=== PATIENT | female | born 1990 | race Hispanic/Latino ===

== ENCOUNTER 2020-01-27 08:00 | Inpatient (IN) | payer MEDICAID ==
[~2020-01-27] VITALS: Ht 152.4 cm; Wt 106.6 kg
[~2020-01-27 08:00] MED LIST: ACET1TAB12 PO
[2020-01-31] MEDS ORDERED: LACTATED RINGERS 1000ML 1,000 ML IV SCH ×2 (05:45→06:00)
[2020-01-31] MEDS ORDERED: CEFAZOLIN SODIUM 1 GM VIAL IVP PRN (06:00)
[2020-01-31 06:59] LABS: HEMATOCRIT 36.7 % (36-48); MEAN CORPUSCULAR HEMOGLOBIN 23.9 pg (27.0-33.0); MEAN CORPUSCULAR HGB CONC 31.6 g/dL (32.0-36.0); MEAN CORPUSCULAR VOLUME 75.5 fL (79-99); PLATELET COUNT (AUTO) 328 K/uL (130-400); RED BLOOD CELL COUNT(AUTO) 4.86 MIL/uL (4.00-5.50); RED CELL DISTRIBUTION WIDTH 15.2 % (11.0-15.5); WHITE BLOOD COUNT (AUTO) 10.7 K/uL (4.8-10.8)
[2020-01-31 07:22] LABS: APPEARANCE,URINE Cloudy (CLEAR); BILIRUBIN,URINE Negative (NEGATIVE); COLOR,URINE Yellow (YELLOW); GLUCOSE, URINE (UA) Negative (NEGATIVE); KETONES,URINE >=80 mg/dL (NEGATIVE); LEUKOCYTE ESTERASE ,URINE Small (NEGATIVE); NITRATE,URINE Negative (NEGATIVE); OCCULT BLOOD,URINE Negative (NEGATIVE); PH,URINE 5.5 (5.0-8.0); PROTEIN,URINE Negative (NEGATIVE)
[2020-01-31 07:48] LABS: BACTERIA,URINE Moderate /HPF (None Seen); RBC,URINE 0-1 /HPF (0-1); SQUAMOUS EPITHELIAL CELL,UR 0-2 /HPF (0-2); WBC,URINE 0-1 /HPF (0-1)
[2020-01-31] MEDS ORDERED: METOCLOPRAMIDE 10 MG/2 ML VIAL ONE (09:16)
[2020-01-31] MEDS ORDERED: ONDANSETRON HCL 4 MG/2 ML VIAL ONE ×2 (09:16→12:59)
[2020-01-31] MEDS ORDERED: DURAMORPH PF1 MG/ML 10ML AMP IV ONE (09:17)
[2020-01-31 10:12] LABS: RAPID PLASMA REAGIN NONREACTIVE (NONREACTIVE)
[2020-01-31] MEDS ORDERED: CALDOLOR 800MG+NS 250ML 250 ML IV ONE ×2 (10:13→10:22)
[2020-01-31] MEDS ORDERED: OXYTOCIN-LR 20 UNITS/1000 ML 1,000 ML IV ONE (10:13)
[2020-01-31] MEDS: CEFAZOLIN SODIUM 1 GM VIAL IVP SCH ×2 (10:15→18:39)
[2020-01-31] MEDS ORDERED: BISACODYL 10 MG SUPP.RECT RC PRN (10:15)
[2020-01-31] MEDS ORDERED: SODIUM CHLORIDE 0.9% 10 ML VIAL IVP PRN (10:15)
[2020-01-31] MEDS ORDERED: DIPH,PERTUSS(ACELL),TET VAC/PF 0.5 ML VIAL IM SCH (10:15)
[2020-01-31] MEDS ORDERED: CALDOLOR 800MG+NS 250ML 250 ML IV PRN (10:15)
[2020-01-31] MEDS ORDERED: ACETAMINOPHEN-CODEINE 300/30MG TAB PO PRN (10:15)
[2020-01-31] MEDS ORDERED: MEASLES/MUMPS/RUBELLA VACCINE, LIVE 0.5 ML/VIAL SQ SCH (10:15)
[2020-01-31] MEDS ORDERED: LANOLIN 30GM OINTMENT TP PRN (10:15)
[2020-01-31] MEDS ORDERED: ACETAMINOPHEN EXTRA STRENGTH 500 MG TABLET PO PRN (10:15)
[2020-01-31] MEDS ORDERED: MEPERIDINE-PF 75 MG/ML SYG IM PRN (10:15)
[2020-01-31] MEDS ORDERED: OXYTOCIN-LR 20 UNITS/1000 ML 1,000 ML IV PRN (10:15)
[2020-01-31] MEDS ORDERED: DEXTROSE 5 %-0.45 % NACL 1,000 ML IV PRN (10:15)
[2020-01-31] MEDS ORDERED: HYDROCODONE/ACETAMINOPHEN 5/325 MG TAB PO PRN (10:15)
[2020-01-31] MEDS ORDERED: IBUPROFEN 600 MG TABLET PO PRN (10:15)
[2020-01-31] MEDS ORDERED: DIPH,PERTUSS(ACELL),TET VAC/PF 0.5 ML VIAL IM PRN (10:15)
[2020-01-31] MEDS ORDERED: PROMETHAZINE HCL 25 MG/ML 1ML AMPULE IM PRN (10:15)
[2020-01-31] MEDS ORDERED: SIMETHICONE 80 MG TAB.CHEW PO PRN (10:15)
[2020-01-31] MEDS ORDERED: MEASLES/MUMPS/RUBELLA VACCINE, LIVE 0.5 ML/VIAL SQ PRN (10:15)
[2020-01-31 11:18] VITALS: BP 99/61
[2020-01-31 16:33] VITALS: BP 128/83
[2020-01-31] MEDS: CALDOLOR 800MG+NS 250ML 250 ML IV SCH (18:39)
[2020-01-31 20:13] VITALS: BP 102/58
[2020-01-31] MEDS: DOCUSATE SODIUM 100 MG CAP PO SCH (20:38)
[2020-02-01 00:15] VITALS: BP 112/59
[2020-02-01] MEDS: CEFAZOLIN SODIUM 1 GM VIAL IVP SCH (02:55)
[2020-02-01] MEDS: CALDOLOR 800MG+NS 250ML 250 ML IV SCH (02:59)
[2020-02-01 03:36] VITALS: BP 109/66
--- NOTE | 2020-02-01 05:50 | NUR ---
JOVEL CATHETER DISCONTINUED, PT. INST TO CALL FOR ASSIST BEFORE GETTING OUT OF BED, VERBALIZED UNDERSTANDING. Addendum: 02/01/20 at 0609 by SALVADOR AGUIAR RN RN Amended: Links added.
--- NOTE | 2020-02-01 06:00 | NUR ---
PT. UP TO BR WITH ASSIST, WELL TOLERATED.
--- NOTE | 2020-02-01 06:15 | NUR ---
PT. HAD A SOFT BM, ASSIST WITH WIPING AND BACK TO SIT ON THE CHAIR, WELL TOLERATED.
[2020-02-01 07:04] LABS: MEAN CORPUSCULAR HEMOGLOBIN 24.1 pg (27.0-33.0); MEAN CORPUSCULAR HGB CONC 31.5 g/dL (32.0-36.0); MEAN CORPUSCULAR VOLUME 76.4 fL (79-99); RED BLOOD CELL COUNT(AUTO) 4.32 MIL/uL (4.00-5.50); WHITE BLOOD COUNT (AUTO) 10.3 K/uL (4.8-10.8)
[2020-02-01 07:15] LABS: HEPATITIS Bs ANTIGEN SCREEN P Negative (Negative)
[2020-02-01 07:32] VITALS: BP 89/56
[2020-02-01] MEDS: DOCUSATE SODIUM 100 MG CAP PO SCH (08:41)
--- NOTE | 2020-02-01 09:45 | NUR ---
CONSULT PT SEEN PER REQUEST. BABY CURRENTLY LATCHED TO RIGHT BREAST VIA CRADLE POSITION, ADEQUATE LATCH NOTED, PT SUCKLING COMFORTABLY. QUESTIONS INVITED AND ANSWERED. PT SPECIFICALLY CONCERNED REGARDING BABY'S SUCKLE PATTERN. REASURRANCE GIVEN TO MOTHER. MOTHER APPEARS HAPPY TO BE . MOTHER REPORTS BABY HAS HAD SEVERAL URINE/STOOL OUTPUTS. ENCOURAGED MOTHER TO NOTIFY LC FOR ANY FURTHER QUESTIONS/CONCERNS NEEDED.
[2020-02-01 10:56] VITALS: BP 116/66
--- NOTE | 2020-02-01 13:35 | NUR ---
DISCHARGE PT LEFT UNIT VIA WHEELCHAIR, WITH BABY IN ARMS, ACCOMPANIED BY SIGNIFICANT OTHER. DENIED PAIN AND HAD NO COMPLAINTS. BABY STRAPPED IN CAR SEAT. PT AND BABY TRANSPORTED BY PERSONAL VEHICLE.
== END 2020-02-01 13:35 | disposition home or self-care (01) | DRG 540 ==
LOC: LDH 01-31 05:45 → WSH 01-31 11:15
PROVIDERS: ADMIT Obstetrics & Gynecology; ATTEND Obstetrics & Gynecology
PROC: 3E0234Z Introduction of Serum, Toxoid and Vaccine into Muscle, Percutaneous Approach (ICD-10-PCS; 2020-01-31)
PROC: 3E0134Z Introduction of Serum, Toxoid and Vaccine into Subcutaneous Tissue, Percutaneous Approach (ICD-10-PCS; 2020-01-31)
PROC: 10D00Z1 Extraction of Products of Conception, Low, Open Approach (ICD-10-PCS; principal; 2020-01-31 09:30)
DX: O34.211 Maternal care for low transverse scar from previous cesarean delivery (principal); O69.81X0 Labor and delivery complicated by cord around neck, without compression, not applicable or unspecified; Z20.828 Contact with and (suspected) exposure to other viral communicable diseases; O99.214 Obesity complicating childbirth; E66.01 Morbid (severe) obesity due to excess calories; Z37.0 Single live birth; Z23 Encounter for immunization; Z3A.39 39 weeks gestation of pregnancy
CPT/HCPCS: 36415; 59510; 81001; 85027; 86592; 86701; 86850; 86900; 86901; 87088; 87340; 87390; A4344; G0378; J0690; J1741; J2274; J2405; J2590; J2765; J7120; U0003

== ENCOUNTER 2022-03-05 14:53 | Emergency (ER) | payer MEDICAID ==
[~2022-03-05] VITALS: Ht 160 cm; Wt 106.1 kg
[2022-03-05 14:55] VITALS: BP 123/73
[2022-03-05] MEDS ORDERED: OSELTAMIVIR PHOSPHATE 75 MG CAP PO SCH (16:00)
[2022-03-05] MEDS ORDERED: ACETAMINOPHEN 500 MG TABLET PO ONE (16:00)
[2022-03-05] MEDS ORDERED: PROMETHAZINE HCL 25 MG/ML 1ML AMPULE IM SCH (16:00)
[2022-03-05] MEDS ORDERED: 0.9%NACL 1000ML 1,000 ML IV SCH (16:00)
[2022-03-05] MEDS ORDERED: PROMETHAZINE HCL 25 MG/ML 1ML AMPULE IVPB SCH (16:00)
[2022-03-05] MEDS ORDERED: ACET-2247 PO (17:02)
[2022-03-05] MEDS ORDERED: PHEN12S PR (17:02)
== END 2022-03-05 17:45 | disposition home or self-care (01) ==
LOC: EDH 14:53
DX: O98.519 Other viral diseases complicating pregnancy, unspecified trimester (principal); J10.1 Influenza due to other identified influenza virus with other respiratory manifestations; E86.0 Dehydration; R50.9 Fever, unspecified; Z20.822 Contact with and (suspected) exposure to COVID-19; Z3A.00 Weeks of gestation of pregnancy not specified
CPT/HCPCS: 99283; 96360; 87635; 87804 ×2; 96372; C9803; J7030; J2550